=== PATIENT | female | born 1985 | race Caucasian/White ===

== ENCOUNTER → 2019-10-20 | Outpatient (CLI) | payer OTHER | LOC: BHSO 12:47 | DX: F31.81 Bipolar II disorder (principal) ==

== ENCOUNTER → 2020-02-10 | Outpatient (CLI) | payer OTHER | LOC: BHSO 16:10 | DX: F90.0 Attention-deficit hyperactivity disorder, predominantly inattentive type (principal) | CPT/HCPCS: G0463 ==

== ENCOUNTER → 2020-04-14 | Outpatient (CLI) | payer OTHER | LOC: BHSO 15:29 | DX: F41.1 Generalized anxiety disorder (principal) | CPT/HCPCS: G0463 ==